=== PATIENT | female | born 1950 | race Caucasian/White ===

== ENCOUNTER 2018-12-20 14:32 | Outpatient (CLI) | payer MEDICARE ==
--- NOTE | 2019-01-03 11:52 | MMO ---
Bilateral MAMMO Bilat Screen [facility]DI. CLINICAL HISTORY: Patient is 68 years old and is seen for screening. The patient has no family history of breast cancer. The patient has no personal history of cancer. VIEWS: The views performed were: bilateral craniocaudal and bilateral mediolateral oblique. This study has been interpreted with the assistance of computer-aided detection. MAMMOGRAM FINDINGS: There are scattered fibroglandular densities. There are benign scattered densities in both breasts. There are no suspicious masses, suspicious calcifications, or new areas of architectural distortion. IMPRESSION: THERE IS NO MAMMOGRAPHIC EVIDENCE OF MALIGNANCY. A ROUTINE FOLLOW-UP MAMMOGRAM IN 1 YEAR IS RECOMMENDED. ACR BI-RADS Category 2 - Benign finding MAMMOGRAPHY NOTE: 1. A negative mammogram report should not delay a biopsy if a dominant of clinically suspicious mass is present. 2. Approximately 10% to 15% of breast cancers are not detected by mammography. 3. Adenosis and dense breasts may obscure an underlying neoplasm.
== END 2018-12-20 14:33 | disposition home or self-care (01) ==
LOC: SCSMAMMO 14:32
PROVIDERS: ATTEND Internal Medicine
DX: Z12.31 Encounter for screening mammogram for malignant neoplasm of breast (principal)
CPT/HCPCS: 77067

== ENCOUNTER 2020-01-21 13:21 | Outpatient (CLI) | payer MEDICARE, OTHER ==
--- NOTE | 2020-01-21 15:27 | MRI ---
RIGHT HIP MRI WITHOUT IV CONTRAST: History: Chronic right hip pain. Tear of acetabular labrum. FINDINGS: Hypertrophic osteophytosis noted involving the right femoral head with some narrowing of the right hi p joint space with some right hip joint fluid and fairly extensive multiple subchondral cystic change s of the acetabulum including the anterior and posterior acetabulum. There is blunting and indistinct ion of the acetabular labrum anteriorly and laterally, evidence for considerable degenerative fraying . No evidence for abnormal marrow signal to suggest avascular necrosis, fracture, or acute stress inj ury. There is some moderate gluteus medius and gluteus minimus tendinopathy on the right side. On the left side, there is more extensive gluteus medius and gluteus minimum tendinopathy as well as fluid in the trochanteric bursa, evidence for possible trochanteric bursitis. IMPRESSION: Right hip joint arthrosis with some prominent primarily acetabular subchondral cystic changes. Right hip joint space narrowing consistent with arthrosis. Blunting and indistinction of the right hip labr um, evidence for considerable fraying. Bilateral gluteal tendinopathy, worse on the left side, with s ome fluid in the left trochanteric bursa. Other findings as above. POS: [facility]
== END 2020-01-21 13:22 | disposition home or self-care (01) ==
LOC: MRI 13:21
PROVIDERS: ATTEND Internal Medicine
DX: S73.101D Unspecified sprain of right hip, subsequent encounter (principal); M16.11 Unilateral primary osteoarthritis, right hip